=== PATIENT | female | born 2000 | race Caucasian/White ===

== ENCOUNTER 2020-10-06 15:54 | Emergency (ER) | payer OTHER ==
[~2020-10-06] VITALS: Ht 157.5 cm; Wt 55.3 kg
== END 2020-10-06 20:10 | disposition home or self-care (01) ==
LOC: ER 15:54
DX: O21.0 Mild hyperemesis gravidarum (principal); Z34.01 Encounter for supervision of normal first pregnancy, first trimester

== ENCOUNTER → 2020-12-23 | Outpatient (CLI) | payer OTHER | END | disposition home or self-care (01) | LOC: PRENATAL 08:00 | PROVIDERS: ATTEND Obstetrics & Gynecology Maternal & Fetal Medicine | DX: O35.0XX1 Maternal care for (suspected) central nervous system malformation in fetus, fetus 1 (principal); O35.3XX1 Maternal care for (suspected) damage to fetus from viral disease in mother, fetus 1; O98.512 Other viral diseases complicating pregnancy, second trimester; Z36.89 Encounter for other specified antenatal screening; Z3A.21 21 weeks gestation of pregnancy ==

== ENCOUNTER 2021-01-22 21:26 | Outpatient (CLI) | payer OTHER ==
[2021-01-22] MEDS ORDERED: PRENATAL TABLE1 EAC1 PO (21:42)
== END 2021-01-23 16:41 | disposition home or self-care (01) ==
LOC: OBS/DEL 21:26
PROVIDERS: ATTEND Obstetrics & Gynecology
DX: O98.812 Other maternal infectious and parasitic diseases complicating pregnancy, second trimester (principal); B37.89 Other sites of candidiasis; Z3A.25 25 weeks gestation of pregnancy

== ENCOUNTER 2021-03-08 19:11 | Outpatient (CLI) | payer OTHER ==
[~2021-03-08 19:11] MED LIST: PRENATAL TABLE1 EAC1 PO
== END 2021-03-09 10:56 | disposition home or self-care (01) ==
LOC: OBS/DEL 19:11
PROVIDERS: ATTEND Obstetrics & Gynecology
DX: O26.893 Other specified pregnancy related conditions, third trimester (principal); R10.13 Epigastric pain; O21.8 Other vomiting complicating pregnancy; Z3A.32 32 weeks gestation of pregnancy

== ENCOUNTER 2021-03-30 17:10 | Outpatient (CLI) | payer OTHER | END 2021-03-31 16:37 | disposition home or self-care (01) | LOC: OBS/DEL 17:10 | PROVIDERS: ATTEND Obstetrics & Gynecology | DX: O26.893 Other specified pregnancy related conditions, third trimester (principal); K52.89 Other specified noninfective gastroenteritis and colitis; Z3A.35 35 weeks gestation of pregnancy ==

== ENCOUNTER 2021-04-17 11:42 | Inpatient (IN) | payer OTHER ==
[~2021-04-17] VITALS: Ht 162.6 cm; Wt 72.6 kg
== END 2021-04-19 15:49 | disposition home or self-care (01) | DRG 805 ==
LOC: LDR 11:42 → OB/GYN 23:20
PROVIDERS: ADMIT Obstetrics & Gynecology; ATTEND Obstetrics & Gynecology
PROC: 10E0XZZ Delivery of Products of Conception, External Approach (ICD-10-PCS; principal; 2021-04-17)
PROC: 0HQ9XZZ Repair Perineum Skin, External Approach (ICD-10-PCS; 2021-04-17)
PROC: 0UQMXZZ Repair Vulva, External Approach (ICD-10-PCS; 2021-04-17)
PROC: 4A1HXFZ Monitoring of Products of Conception, Cardiac Rhythm, External Approach (ICD-10-PCS; 2021-04-17)
DX: O42.02 Full-term premature rupture of membranes, onset of labor within 24 hours of rupture (principal); O98.52 Other viral diseases complicating childbirth; U07.1 COVID-19; O71.82 Other specified trauma to perineum and vulva; O70.0 First degree perineal laceration during delivery; Z37.0 Single live birth; Z3A.37 37 weeks gestation of pregnancy

== ENCOUNTER 2024-06-01 06:48 | Day surgery (SDC) | payer OTHER ==
[2024-05-27 10:09] LABS: PH,URINE 5.5 (5.0-8.0); URINE BILIRRUBIN Negative (NEGATIVE); URINE BLOOD Negative; URINE COLOR Yellow; URINE GLUCOSE Negative (NEGATIVE); URINE KETONE Negative (NEGATIVE); URINE LEUKOCYTE Negative; URINE NITRATE Negative; URINE PROTEIN Negative (NEGATIVE); URINE UROBILINOGEN 0.2 E.U./dl
[2024-05-27 10:12] LABS: URINE BACTERIA 318.7 uL (0.0-1933); URINE EPITHELIAL CELLS 16.6 uL (0.0-38.8); URINE WBC 4.4 uL (0.0-23.2)
[2024-05-27 10:21] LABS: URINE RBC 1.2 uL (0.0-20.8)
[2024-05-27 10:22] LABS: URINE APPEARANCE CLEAR
[2024-05-27 10:36] LABS: HEMATOCRIT 37.4 % (36.0-45.00); HEMOGLOBIN 12.8 g/dL (12.0-15.00); MEAN CELL VOLUME 87.9 fL (80.00-100.00); MEAN CORPUSCULAR HGB CONC 34.1 g/dl (32.0-36.0); PLATELET COUNT 332 K/uL (150-450); RED BLOOD COUNT 4.26 M/uL (4.00-6.00); RED CELL DISTRIBUTION WIDTH 12.8 % (11.5-14.5)
[2024-05-27 11:00] LABS: INR 1.04; PARTIAL THROMBOPLASTIN TIME 32.5 SECONDS (22.0-34.0); PROTHROMBIN TIME 11.3 SECONDS (9.0-11.5)
[2024-05-27 11:10] LABS: BILIRUBIN TOTAL 0.77 mg/dL (0.3-1.2); CALCIUM 9.2 mg/dL (8.5-10.1); CREATININE SERUM 0.66 mg/dL (0.55-1.02); GFR 109.12; GLOBULINA 3.6 G/DL (2.4-3.5); POTASSIUM 4.26 mEq/L (3.5-5.1); TOTAL PROTEIN 7.6 gm/dL (6.4-8.2)
[2024-06-01] MEDS ORDERED: POVIDONE-IODINE 118 ML BOTT TOP ONE (15:30)
== END 2024-06-01 20:30 | disposition home or self-care (01) ==
LOC: CIR.AMB 06:48
PROVIDERS: ATTEND Obstetrics & Gynecology
DX: N93.8 Other specified abnormal uterine and vaginal bleeding (principal); J45.909 Unspecified asthma, uncomplicated; H52.209 Unspecified astigmatism, unspecified eye; H52.10 Myopia, unspecified eye